=== PATIENT | male | born 1955 | race Caucasian/White ===

== ENCOUNTER 2020-03-01 09:53 | Outpatient (CLI) | payer MEDICARE, OTHER ==
[~2020-03-01] VITALS: Ht 190.5 cm; Wt 147.7 kg
--- NOTE | ~2020-03-01 | HEMODYNAMI ---
PATIENT:ONEIDA HEARD MEDICAL RECORD: [id number] : 53 [id number] ADMISSION DATE: 03/01/20 Generatedon:03/01/202015:15 Patient name: ONEIDA HEARD Patient #: [id number] SSN: [id number] : 1955 Date of study: 03/01/2020 Page: Of Hemodynamic Procedure Report Patient Data Patient Demographics Procedure consent was obtained First Name: ONEIDA Gender: Male Last Name: ORQUIDEA : 1955 Middle Initial: D Age: 64 year(s) Patient #: [id number] Race: SSN: [id number] Additional ID: [id number] Contact details [address]: [address] [place] [address] State: [place] City: [place] Zip code: [address] Past Medical History History of disease Date Diagnosis Comments CAD Allergies Allergen Reaction Date Comments Reported Zocor 04/04/2015 Other allergy 03/01/2020 SIMVASTATIN Admission Admission Data Admission Date: 03/01/2020 Admission Time: 11:14 Arrival Date: 03/01/2020 Arrival Time: 0:00 Room #: [facility] Height (in.): 75.2 BSA: 2.71 (m2) Height (cm.): 191 BMI: 40.57 (kg/m2) Weight (lbs.): 326.29 Weight (kg.): 148 Lab Results Lab Result Date: 03/01/2020 Lab Result Time: 0:00 Biochemistry Name Units Result Min Max BUN mg/dl 18 --(---*)-- 7 18 Creatinine mg/dl 0.9 --(-*--)-- 0.6 1.3 eGFR ml/min 90 --(*---)-- 90 120 NONAFRICAN CBC Name Units Result Min Max Hematocrit % 48 --(-*--)-- 42 54 Hemoglobin g/dl 15 --(-*--)-- 13.5 17.5 Procedure Procedure Types Cath Procedure Diagnostic Procedure [facility] w/Coronaries Sedation Charges Moderate Sedation up to 30 minutes PCI Procedure PTCA PTCA Initial Hemochron ACT Test Procedure Description Procedure Date Procedure Date: 03/01/2020 Procedure Start Time: 14:44 Procedure End Time: 15:13 Procedure Staff Name Function Jair Ann MD Performing Physician Akosua Askew RT Monitor Cristel Virk RN Nurse Zahida Bella RT Scrub Lesa Stevens RT Prop Maker Indication Chest pain Procedure Data Cath Procedure Fluoroscopy Diagnostic fluoroscopy Total fluoroscopy Time: 6.7 time: 6.7 min min Diagnostic fluoroscopy Total fluoroscopy dose: dose: 2006 mGy 2006 mGy Contrast Material Contrast Material Type Amount (ml) Isovue 300 118 Entry Location Entry Primary Successful Side Size Upsize Upsize Entry Closure Succes sful Closure Location (Fr) 1 (Fr) 2 (Fr) Remarks Device Remarks Femoral Right 5 Fr 6 Fr Exoseal artery Short Estimated blood loss: 10 ml Diagnostic catheters Device Type Used For End Catheter Placement MULTIPACK JL 4.0 5Fr Left Coronary catheter Angiography DIAGNOSTIC JL 5 5Fr Left Coronary catheter ([id number]) Angiography DIAGNOSTIC JL 6 5Fr Left Coronary catheter ([id number]) Angiography MULTIPACK 3DRC 5Fr Right Coronary catheter Angiography MULTIPACK Pigtail 5 Fr LV Angiography catheter Procedure Complications No complications Procedure Medications Medication Administration Route Dosage 0.9% NaCl I.V. 100 ml/hr Oxygen etCO2 Nasal cannula 2 l/min Lidocaine 2% added to field 20 Heparin Flush Bag added to field 2 bags (1000units/500ml NS) Versed I.V. 2 mg Fentanyl I.V. 50 mcg Versed I.V. 2 mg Fentanyl I.V. 50 mcg Plavix P.O. 75 mg Heparin Bolus I.V. 14000 units Hemodynamics Rest BSA: 2.71 (m2) HGB: 15 (g/dl) O2 Consumption: Estimated: 323.07 (ml/min) O2 Cons umption indexed: Estimated:119.21 (ml/min/m) Heart Rate: 77 (bpm) Pressure Samples Time Site Value (mmHg) Purpose Heart Use Rate(bpm) 14:57 LV 146/10,24 Snapshot 84 14:58 AO 152/90(117) Pullback 85 14:58 LV 145/51,58 Pullback 85 Gradients Valve Time Site 1 Site 2 Mean SEP/DFP Peak To Heart Use (mmHg) (sec/min) Peak Rate (mmHg) (bpm) Aortic 14:58 LV AO 0 85 145/51,58 152/90(117) Calculations Valve P-P Mean Valve Index Valve Source Name Gradient Area Flow (cm2) Aortic 0 0 Snapshots Pre Cath Intra NCS Post Cath Vital Signs Time Heart Resp SPO2 etCO2 NIBP (mmHg) Rhythm Pain Sedation Rate (ipm) (%) (mmHg) Status Level (bpm) 14:28:15 76 21 97 50 182/108(141) NSR 0 (11) 10(A) , No pain 14:32:41 77 19 98 45.2 191/101(128) NSR 0 (11) 10(A) , No pain 14:37:05 80 19 97 45.2 166/102(125) NSR 0 (11) 10(A) , No pain 14:41:27 85 14 97 18.1 156/90(117) NSR 0 (11) 10(A) , No pain 14:45:47 77 14 98 50.4 175/104(125) NSR 0 (11) 9(A) , No pain 14:50:14 80 17 96 48.2 181/103(131) NSR 0 (11) 9(A) , No pain 14:54:36 85 20 96 49 174/107(136) NSR 0 (11) 9(A) , No pain 14:59:02 81 17 97 48.9 165/104(132) NSR 0 (11) 9(A) , No pain 15:03:26 82 20 96 48.2 168/101(130) NSR 0 (11) 9(A) , No pain 15:07:48 82 21 97 47.4 174/99(127) NSR 0 (11) 10(A) , No pain 15:12:13 79 20 98 41.4 182/105(124) NSR 0 (11) 10(A) , No pain Medications Time Medication Route Dose Verified Delivered Reason Notes Effectiveness by by 14:27:25 0.9% NaCl I.V. 100 Jair Cristel used for ml/hr Seth Virk sugar laboratory assistant 14:27:31 Oxygen etCO2 2 Jair Cristel used for Nasal l/min Seth Virk procedure cannula RN 14:27:35 Lidocaine 2% added 20ml Jair Jair for local to vial Seth Ann MD anesthetic field 14:27:39 Heparin Flush added 2 Jair Jair used for Bag to bags Seth Ann MD procedure (1000units/500ml field NS) 14:28:25 Plavix P.O. 75 mg Jair Cristel for Seth Virk antiplatelet RN therapy 14:34:05 Versed I.V. 2 mg Jair Cristel for sedation Seth Virk RN 14:34:21 Fentanyl I.V. 50 Jair Cristel for sedation mcg Seth Virk RN 14:40:44 Versed I.V. 2 mg Jair Cristel for sedation Seth Virk RN 14:40:52 Fentanyl I.V. 50 Jair Cristel for sedation mcg Seth Virk RN 15:01:33 Heparin Bolus I.V. 18095 Jair Cristel for units Seth Virk anticoagulation manager oracle database Log Time Note 14:10:28 Informed consent obtained and on chart 14:12:03 Indication : Chest pain 14:12:11 Procedure Status Urgent Heart Cath (IP). 14:12:19 Lesa Stevens RT(R) sent for patient. Start room use. 14:12:22 Time tracking: Regular hours (M-F 7:00 - 5:00) 14:12:31 Plan of Care:Hemodynamics will remain stable., Cardiac rhythm will remain stable., Comfort level will be maintained., Respiratory function will remain adequate., Patient/ family verbilizes understanding of procedure., Procedure tolerated without complication., Recovers from procedure without complications.. 14:13:13 Patient allergic to Other allergySIMVASTATIN 14:13:24 Arrival Date: 03/01/2020 12:00:00 AM 14:13:34 Patient Height : 75.2 inches 14:13:39 Patient Weight : 326.29 lbs 14:14:32 Lab Result : eGFR NONAFRICAN 90 ml/min 14:14:32 Lab Result : Creatinine 0.9 mg/dl 14:14:32 Lab Result : BUN 18 mg/dl 14:14:32 Lab Result : Hematocrit 48 % 14:14:32 Lab Result : Hemoglobin 15 g/dl 14:16:01 Lab results completed and on chart. 14:18:18 Risk of Mortality: 0.1 14:18:23 Risk of blood transfusion: 0.1 14:18:27 Risk of GABBI: 0.8 14:24:12 Patient received from Med II to CCL 1 Alert and oriented. Tansferred to table in Supine position. 14:24:14 Warm blankets applied, and jc hugger turned on for patient comfort. 14:24:15 Correct patient and procedure confirmed by team. 14:24:16 ECG and BP/O2 sat monitors applied to patient. 14:26:55 Vital chart was started 14:27:25 0.9% NaCl 100 ml/hr I.V. was administered by Cristel Virk RN; used for procedure; Verbal order read back and verified. 14:27:31 Oxygen 2 l/min etCO2 Nasal cannula was administered by Cristel Virk RN ; used for procedure; Verbal order read back and verified. 14:27:35 Lidocaine 2% 20ml vial added to field was administered by Jair Ann MD ; for local anesthetic; Verbal order read back and verified. 14:27:39 Heparin Flush Bag (1000units/500ml NS) 2 bags added to field was administered by Jair Ann MD; used for procedure; Verbal order read back and verified. 14:28:25 Plavix 75 mg P.O. was administered by Cristel Virk RN; for antiplatele t therapy; Verbal order read back and verified. 14:28:46 Baseline sample Acquired. 14:28:53 Rhythm: sinus rhythm 14:28:56 Full Disclosure recording started 14:28:57 - 14:29:09 H&P Date Dictated: 03/01/2020 Within 30 days and on chart., ER History on chart.. 14:29:12 Pre-procedure instructions explained to patient. 14:29:12 Pre-op teaching completed and patient verbalized understanding. 14:29:17 Family unavailable. 14:29:20 Patient NPO since Midnight. 14::24 Is the patient allergic to Iodine/contrast media? No. 14::27 Was the patient premedicated? Yes 14:29:30 Is patient on blood thinner?Yes 14:29:35 ACC The patient was administered the following blood thiners within the last 24 hours: ACCPlavix 14:29:39 Patient diabetic? No. 14:29:46 ----Pre-sedation anethsthesia assessment.---- 14:29:52 Previous problem with sedation/anesthesia? No ? 14:29:54 Snore? Yes 14:29:57 Sleep apnea? Yes 14:30:00 Deviated septum? Unknown 14:30:03 Opens mouth fully? Yes 14:30:05 Sticks out tongue? Yes 14:30:14 Airway obstruction? No ? 14:30:17 Dentures? No ? 14:30:30 Pre procedure: right dorsailis pedis pulse 2+ Normal; easily identifiable; not easily obliterated 14:30:42 IV patent on arrival in left hand with 0.9% NaCl at O. 14:30:58 Stress Test: no; N/A ? 14:31:03 Right groin area was prepped with chlora-prep and draped in sterile fashion 14:31:05 Alarms reviewed by R. N. 14:31:06 Sharps counted by scrub and verified by R.N. 14:31:15 Use device set Femoral Dx 14:31:18 ACIST Syringe (40321) opened to sterile field. 14:31:20 Bag Decanter (2002) opened to sterile field. 14:31:21 Medline Cath Pack ([id number]) opened to sterile field. 14:31:24 ACIST Hand Control (05313) opened to sterile field. 14:31:24 ACIST Manifold (11224) opened to sterile field. 14:31:28 DIAGNOSTIC Multipack 5Fr catheter set ([id number]) opened to sterile field. 14:31:29 Tegaderm 4 x 4 (1626W) opened to sterile field. 14:31:31 SHEATH 5FR [place] (XGU474) opened to sterile field. 14:31:32 EMERALD Guide Wire (299-532) opened to sterile field. 14:33:41 Physician arrived 14:33:42 --------ALL STOP TIME OUT------ 14:33:44 Final Timeout: patient, procedure, and site verified with staff and physician. All members of the team are in agreement. 14:33:47 Right groin site verified by team. 14:33:53 Fire Safety Assessment: A--An alcohol-based skin anteseptic being used preoperatively., C--Open oxygen or nitrous oxide is being used., D--An ESU, laser, or fiber-optic light is being used. 14:34:03 Physical assessment completed. ASA score P 2 - A patient with mild systemic disease as per Jair Ann MD. 14:34:05 Versed 2 mg I.V. was administered by Cristel Virk RN; for sedation; Verbal order read back and verified. 14:34:08 1) 90+ Normal kidney functon but urine findings or structural abnormalities or genetic trait point to kidney disease. 14:34:13 Maximum allowable contrast dose (3.7 X eGFR X 0.75)250 ml. 14:34:21 Fentanyl 50 mcg I.V. was administered by Cristel Virk RN; for sedation ; Verbal order read back and verified. 14:34:21 Sedation plan: IV Moderate Sedation Medication:Versed, Fentanyl 14:37:20 Zero performed for pressure channel P1 14:40:44 Versed 2 mg I.V. was administered by Cristel Virk RN; for sedation; Verbal order read back and verified. 14:40:52 Fentanyl 50 mcg I.V. was administered by Cristel Virk RN; for sedation ; Verbal order read back and verified. 14:43:52 Procedure started. 14:44:00 Local anesthetic to right femoral artery with Lidocaine 2% by Jair alonso MD.INITIAL ACCESS ONLY 14:44:32 A 5 Fr sheath was inserted into the Right Femoral artery 14:45:47 A MULTIPACK JL 4.0 5Fr catheter was advanced over the wire and used for Left Coronary Angiography. 14:47:06 Catheter removed. 14:47:39 A DIAGNOSTIC JL 5 5Fr catheter ([id number]) was advanced over the wire and used for Left Coronary Angiography. 14:48:32 LCA angiography performed. 14:48:47 Injector settings: Ml/sec: 3, Volume: 6, 14:51:21 Catheter removed. 14:51:47 A DIAGNOSTIC JL 6 5Fr catheter ([id number]) was advanced over the wire and used for Left Coronary Angiography. 14:53:31 LCA angiography performed. 14:54:06 Injector settings: Ml/sec: 3, Volume: 6, 14:54:08 Catheter removed. 14:54:26 A MULTIPACK 3DRC 5Fr catheter was advanced over the wire and used for Right Coronary Angiography. 14:54:50 RCA angiography performed. 14:55:04 Injector settings: Ml/sec: 3, Volume: 6, 14:56:16 Catheter removed. 14:56:24 A MULTIPACK Pigtail 5 Fr catheter was advanced over the wire and used for LV Angiography. 14:57:25 LV gram done using HERNANDEZ 14:57:31 Injector settings: Ml/sec: 5, Volume: 15, 14:57:52 EF : 25 % 14:58:09 LV hemodynamics recorded. 14:58:12 Catheter removed. 14:58:24 SHEATH 6FR [place] (FPL683) opened to sterile field. 14:58:31 GUIDE 6FR JR 4.0 catheter (BD0RO11) opened to sterile field. 14:58:32 TUBING High Pressure Extension Tubing (Ann) ([id number]) opened to sterile field. 14:58:33 INFLATOR Merit BasixCompak (RV7191) opened to sterile field. 14:58:39 Proceeding to intervention. 14:58:48 ACC Pre-intervention KM Flow is 3. 14:59:40 Sheath upsized to a 6 Fr Short. 14:59:47 6 Fr JR4 guide catheter was inserted over the wire 15:00:12 BMW 300cm [place] 2 J wire ([id number]) opened to sterile field. 15:01:33 Heparin Bolus 84810 units I.V. was administered by Cristel Virk RN; fo r anticoagulation; Verbal order read back and verified. 15:01:40 Pre PCI Site: [place] mRCA has 80% stenosis. 15:01:56 STG010 wire advanced. 15:05:37 Inflate balloon Inflation number: 1 A EMERGE OTW 3.0 x 15 balloon ([id number]) was prepped and advanced across the Mid RCA , then inflated to 14 ROSALIE for 0:20 (min:sec) . 15:06:54 Balloon removed over the wire. 15:07:03 ACC Post-intervention KM Flow is 3. 15:07:14 Post PCI Site: [place] mRCA has 0% stenosis. 15:07:18 EXOSEAL 6Fr (EX600) opened to sterile field. 15:07:24 Wire removed. 15:07:25 Guide catheter removed. 15:08:03 Sheath removed intact; hemostasis achieved with Exoseal to the Right Femoral artery. 15:08:12 Procedure ended.(Physican Out) 15:08:21 Contrast amount:Isovue 300 118ml. 15:08:26 Maximum allowable dose exceeded? No. 15:08:37 Fluoroscopy time 06.70 minutes. 15:08:52 Flurop Dose total: 2005 15:08:52 Fluoroscopy dose: 2005 mGy 15:09:00 Dose Area Product 946986 mGy/cm. 15:09:03 Sharps counted by scrub and verified by R.N. 15:09:06 Insertion/operative site no bleeding no hematoma. 15:09:13 Post-op/insertion site Right Femoral artery dressed using a 4 x 4 and Tegaderm. 15:09:19 Post right femoral artery:stable 15:09:25 Post-procedure physical assessment completed. ASA score P 2 - A patient with mild systemic disease as per Jair Ann MD. 15:09:30 Post procedure rhythm: unchanged. 15:09:34 Estimated blood loss: 10 ml 15:09:36 Post procedure instruction explained to patient.Patient verbalizes understanding. 15:09:38 Patient needs reinforcement of post procedure teaching. 15:11:13 Procedure type changed to Cath procedure, Diagnostic procedure, [facility], C w/Coronaries, Sedation Charges, Moderate Sedation up to 30 minutes, PCI procedure, PTCA, PTCA Initial, Hemochron ACT Test 15:11:16 Procedure and supply charges have been captured, reviewed, submitted an d are correct. 15:12:01 Procedure Complication : No complications 15:12:05 Vital chart was stopped 15:12:09 [facility] Findings: MVD- PCI performed (see procedure note) 15:12:12 ACT drawn and resulted at >400- out of range seconds. (normal therapeutic range 180-240 seconds). 15:12:13 Operative report dictated upon procedure completion. 15:12:14 See physician's report for complete and final results. 15:12:17 Report given to Med II. 15:12:22 Patient transfered to [facility] II with Bed. 15:13:29 Procedure ended. 15:13:29 Full Disclosure recording stopped 15:13:56 End room use (Document Last) Intervention Summary Intervention Notes Time ActionType Lesion and Equipment Action# Pressure Duration Attributes Used 15:05:37 Inflate Mid RCA EMERGE OTW 1 14 00:20 balloon 3.0 x 15 balloon ([id number]) Device Usage Item Name Manufacture Quantity Catalog Number Hospital Part Current Min imal Lot# / Charge Number Stock Stock Serial# Code ACIST Acist 1 93610 226147 343685 322559 20 Syringe Medical (79819) Systems Inc Bag Decanter Microtek 1 2001S 627694 56660 998435 5 (2001S) Medical Inc. Medline Cath Medline 1 [id number] 370083 64997 712047 5 Pack ([id number]) ACIST Hand Acist 1 88395 775778 316267 914645 5 Control Medical (65769) Systems Inc ACIST Acist 1 63094 548835 909493 210919 5 Manifold Medical (95855) Systems Inc DIAGNOSTIC Cardinal 1 HF8577 034992 55310 113824 30 Multipack Spire 5Fr catheter set (NX4479) Tegaderm 4 x 3M 1 1626W 548799 641461 357920 5 4 (1626W) SHEATH 5FR Terumo 1 PDZ529 266584 319541 301389 5 [place] (YSR723) EMERALD Cardinal 1 502-455 105607 693856 525383 [address] [facility] (502-455) MULTIPACK JL Cardinal 1 063823 5 4.0 5Fr Health catheter DIAGNOSTIC Cardinal 1 [id number] 412314 179337 476717 5 JL 5 5Fr Health catheter (990145T) DIAGNOSTIC Cardinal 1 201314C 932569 207161 486430 5 JL 6 5Fr Health catheter (817061T) MULTIPACK Cardinal 1 588450 5 3DRC 5Fr Health catheter MULTIPACK Cardinal 1 165299 5 Pigtail 5 Fr Health catheter SHEATH 6FR Terumo 1 VXO277 992145 530620 169785 40 [place] (VTY458) GUIDE 6FR JR Medtronic 1 [id number] 334053 90704 806094 1 4.0 catheter (AA7GU39) TUBING High Merit 1 [id number] 389095 53535 910359 10 Pressure Medical Extension Tubing (Ann) (TP4749W) INFLATOR Merit 1 UX1954 755854 918503 162697 15 Merit Medical BasixCompak (QN0871) BMW 300cm [place] 1 [id number] 138480 286960 553186 5 [place] 2 Vascular J wire (5365426C) EMERGE OTW [place] 1 [id number] 175977 897252 356808 5 [id number] 3.0 x 15 Scientific balloon ([id number]) EXOSEAL 6Fr Cardinal 1 EX600 468463 111777 138491 10 (EX600) Health Signature Audit [place] Stage Time Signature Unsigned Intra-Procedure 03/01/2020 Akosua 3:14:29 PM Jamilah RT(R) (CV) Intra-Procedure 03/01/2020 Cristel Virk 3:14:58 PM RN Intra-Procedure 03/01/2020 Jair Ann MD 3:15:29 PM [facility] [address] [place] [address]
[~2020-03-01 09:53] MED LIST: ASPIRIN325 MG PO; BAYER CHEWABLE81 MG PO; BENICAR HCT 40-1 TA1 PO; CRESTOR40 MG PO; EFFIENT10 MG PO; FLOMAX0.4 MG PO; HYDROCHLOROTHIA25 MG PO; MULTIPLE VITAMI1 TA1 PO; NORVASC10 MG PO; PLAVIX75 MG PO
[2020-03-01 10:13] LABS: BASOPHILS 0.7 % (0-2); IMMATURE GRANULOCYTES 1.7 % (0-5); LYMPHOCYTES 24.9 % (15-50); MCH 31.2 pg (26.0-34.0); MCHC 31.3 g/dL (31.0-37.0); MCV 99.8 fL (80.0-100.0); MEAN PLATELET VOLUME 9.8 fL (7.4-10.4); MONOCYTES 8.5 % (2-11); NEUTROPHILS 59.2 % (40-80); PLATELET COUNT 210 10x3/uL (130-400); RBC 4.81 10x6/uL (4.20-6.10); RDW 13.8 % (11.5-14.5)
[2020-03-01 10:21] LABS: APTT 25.5 SECONDS (22.8-39.4); CALC OSMOLALITY 281 mosm/kg (275-300); CALCIUM 8.7 mg/dL (8.5-10.1); CARBON DIOXIDE 30.3 mmol/L (21.0-32.0); CHLORIDE - SERUM 105 mmol/L (98-107); CREATININE - SERUM 0.9 mg/dL (0.6-1.3); GLUCOSE 108 mg/dL (74-106); INR 0.91 (0.85-1.17); POTASSIUM - SERUM 4.4 mmol/L (3.5-5.1); PROTIME 12.2 SECONDS (11.6-15.0); SODIUM 140 mmol/L (136-145); UREA NITROGEN 18 mg/dL (7-18); eGFR NON AFRICAN AMERICAN 90 mL/min (90-120)
[2020-03-01 10:24] VITALS: BP 158/85
[2020-03-01 10:38] LABS: ALBUMIN 3.5 g/dL (3.4-5.0); ALKALINE PHOSPHATASE 70 U/L (30-120); ALT (SGPT) 40 U/L (10-68); BILIRUBIN - TOTAL 0.29 mg/dL (0.2-1.3); CREATINE KINASE 86 UL (21-232); PROTEIN - SERUM 7.3 g/dL (6.4-8.2); TROPONIN-I < 0.017 ng/mL (0.000-0.060)
[2020-03-01 11:58] VITALS: BP 158/85; BMI 40.7
[2020-03-01 12:00] VITALS: BP 162/96
[2020-03-01 13:32] VITALS: Ht 190.5 cm; Wt 147.7 kg
[2020-03-01 14:08] LABS: CHOL - HDL RATIO 6.2 ratio (2.3-4.9); LDL-HDL RATIO 0.8 ratio (1.5-3.5)
--- NOTE | 2020-03-01 14:30 | NUR ---
PRE-OPS GIVEN. TO TECHNICAL TRANSLATOR BED.
--- NOTE | 2020-03-01 15:42 | NUR ---
BACK FROM PESTICIDE USE MEDICAL COORDINATOR. VS WNL. RIGHT GROIN STABLE WITHOUT BLEEDING OR HEMATOMA NOTED. WILL MONITOR.
[2020-03-01 16:00] VITALS: BP 141/54
--- NOTE | 2020-03-01 19:00 | NUR ---
REPORT RECEIVED, WILL CONTINUE POC. PATIENT IS AAOX4, LYING IN SEMI-FOWLERS POSITION. RR EVEN AND UNLABORED ON 2L O2 VIA NC. PIV TO LT HAND INFUSING NS @75ML/HR. PATIENT DENIES NEEDS AT THIS TIME. RT GROIN DRSG C/D/I, NO S/S OF HEMATOMA. WILL CTM.
[2020-03-01 20:00] VITALS: BP 145/86
[2020-03-02 04:00] VITALS: BP 127/70; BP 127/76
[2020-03-02 05:33] LABS: BASOPHILS 0.5 % (0-2); EOSINOPHILS 4.9 % (0-7); HEMATOCRIT 45.6 % (42.0-54.0); IMMATURE GRANULOCYTES 0.9 % (0-5); LYMPHOCYTES 17.8 % (15-50); MCH 30.8 pg (26.0-34.0); MCHC 30.7 g/dL (31.0-37.0); MCV 100.2 fL (80.0-100.0); MEAN PLATELET VOLUME 9.8 fL (7.4-10.4); MONOCYTES 9.1 % (2-11); NEUTROPHILS 66.8 % (40-80); PLATELET COUNT 204 10x3/uL (130-400); RBC 4.55 10x6/uL (4.20-6.10); RDW 13.9 % (11.5-14.5); WBC 6.6 10x3/uL (4.8-10.8)
[2020-03-02 06:34] LABS: ALBUMIN 3.1 g/dL (3.4-5.0); ALKALINE PHOSPHATASE 58 U/L (30-120); ALT (SGPT) 37 U/L (10-68); BILIRUBIN - TOTAL 0.48 mg/dL (0.2-1.3); CALCIUM 8.2 mg/dL (8.5-10.1); CARBON DIOXIDE 31.1 mmol/L (21.0-32.0); CHLORIDE - SERUM 105 mmol/L (98-107); CKMB 1.2 U/L (0.0-3.6); CREATINE KINASE 82 UL (21-232); CREATININE - SERUM 0.9 mg/dL (0.6-1.3); GLUCOSE 107 mg/dL (74-106); POTASSIUM - SERUM 4.2 mmol/L (3.5-5.1); PROTEIN - SERUM 6.3 g/dL (6.4-8.2); SODIUM 141 mmol/L (136-145); eGFR NON AFRICAN AMERICAN 90 mL/min (90-120)
[2020-03-02 07:01] LABS: CALC OSMOLALITY 280 mosm/kg (275-300); UREA NITROGEN 12 mg/dL (7-18)
[2020-03-02 07:02] LABS: TROPONIN-I 0.206 ng/mL (0.000-0.060)
[2020-03-02 08:56] VITALS: BP 144/84
--- NOTE | 2020-03-02 10:16 | NUR ---
URINE SPECIMEN COLLECTED AND TAKEN TO LAB.
[2020-03-02 10:37] LABS: BILIRUBIN NEGATIVE (NEGATIVE); GLUCOSE NEGATIVE (NEGATIVE); KETONE NEGATIVE (NEGATIVE); NITRITE NEGATIVE (NEGATIVE); UROBILINOGEN NORMAL (NORMAL)
--- NOTE | 2020-03-02 12:23 | NUR ---
IV AND TELEMETRY DCD. DC PLANS GIVEN. UNDERSTANDING VOICED. ESCORTED TO CAR.
== END 2020-03-02 12:24 | disposition home or self-care (01) ==
LOC: OBSVTIME → D.ER 09:53 → D.OPS 09:53 → D.M2 11:14 → D.ER 11:14 → OBSVTIME 11:16 → D.ER 11:51 → EDSTATUS 16:32 → D.M2 03-02 12:24 → D.OPS 03-02 12:24
PROVIDERS: Family Medicine; Internal Medicine Cardiovascular Disease; ATTEND Internal Medicine Nephrology
DX: I20.0 Unstable angina (principal); R07.9 Chest pain, unspecified; I10 Essential (primary) hypertension; I25.2 Old myocardial infarction